=== PATIENT | male | born 1985 | race Caucasian/White ===

== ENCOUNTER 2021-05-23 19:29 | Emergency (ER) | payer MEDICAID, SELFPAY ==
[2021-05-23 19:34] VITALS: BP 144/95; PULSE 91; RESP 20; O2SAT 95; BMI 25.8
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
[2021-05-23 20:08] LABS: Basophils % 0.3 %; Eosinophils # 0.2 10^3/uL (0.0-0.8); Eosinophils % 1.8 %; Hematocrit 43.2 % (42.0-52.0); Hemoglobin 14.3 g/dL (11.7-16.6); Lymphocytes # 2.3 10^3/uL (0.8-4.8); Lymphocytes % 18.2 %; Mean Corpuscular HGB Conc 33.1 g/dL (30.0-36.0); Mean Corpuscular Hemoglobin 32.1 pg (28.0-34.0); Mean Corpuscular Volume 97.1 fL (80-94); Mean Platelet Volume 9.6 fL (7.4-10.4); Monocytes % 7.8 %; Neutrophils % 71.6 %; Nucleated Red Blood Cells % 0 %; Platelet Count 210 10^3/cmm (130-400); Red Blood Count 4.45 10^6/uL (4.1-5.3); Red Cell Distribution Width 13.5 % (12.1-15.1); White Blood Count 12.4 10^3/uL (4.0-10.0)
[2021-05-23] MEDS: iohexol 300 mg/mL 100 mL Btl IV (20:08)
[2021-05-23 20:25] VITALS: RESP 20; O2SAT 99
[2021-05-23] MEDS: sodium chloride 0.9% 1,000 ML 999 ML IV (20:25)
[2021-05-23] MEDS: HYDROmorphone 1 mg/mL INJ 1 mL IVP (20:25)
[2021-05-23] MEDS: ondansetron 2 mg/ML SDV 2 mL 4 MG IVP (20:25)
[2021-05-23 20:27] LABS: Alanine Aminotransferase 37 U/L (0-41); Albumin Level 4.2 g/dL (3.5-5.2); Alcohol Level 47 mg/dL (0-10); Alkaline Phosphatase 80 IU/L (40-130); Anion Gap 15.6 (5-19); Aspartate Amino Transferase 33 U/L (0-40); Blood Urea Nitrogen 19 mg/dL (6-20); Calcium 8.2 mg/dL (8.5-10.5); Carbon Dioxide 24 mmol/L (22-29); Chloride 104 mmol/L (98-107); Creatinine Clr Calc Pharmacy 125.6616; Globulin 2.5 g/dL (1.3-4.6); Glomerular Filtration Rate 109.4 mL/min (90-130); Glucose 90 mg/dL (65-115); Osmolality Calculated 292 mOsm/kg (285-295); Potassium 3.6 mmol/L (3.5-5.1); Sodium 140 mmol/L (136-145); Total Bilirubin 0.2 mg/dL (0.15-1.2); Total Protein 6.7 g/dL (6.6-8.7)
[2021-05-23 21:18] VITALS: BP 135/93; PULSE 102; RESP 18; O2SAT 98
== END 2021-05-23 21:43 | disposition home or self-care (01) ==
PROVIDERS: Emergency Provider Emergency Medicine
DX: S01.01XA Laceration without foreign body of scalp, initial encounter (principal); S22.32XA Fracture of one rib, left side, initial encounter for closed fracture; S32.009A Unspecified fracture of unspecified lumbar vertebra, initial encounter for closed fracture; F17.290 Nicotine dependence, other tobacco product, uncomplicated; X58.XXXA Exposure to other specified factors, initial encounter
CPT/HCPCS: 12001; 70450; 71260; 72125; 72128; 72131; 73080; 74177; 80053; 80307; 85025; 96361; 96374; 96375; 99284; J1170; J2405; J7030; Q9967

== ENCOUNTER → 2021-06-03 14:24 | Outpatient (BNVA) | payer MEDICAID, SELFPAY | PROVIDERS: Referring Provider Emergency Medicine; Visit Provider Orthopaedic Surgery | DX: M54.5 Low back pain (principal) | CPT/HCPCS: 72100 ==

== ENCOUNTER → 2021-07-15 14:54 | Outpatient (BNVA) | payer MEDICAID, SELFPAY | PROVIDERS: PCP Nurse Practitioner Family; Visit Provider Orthopaedic Surgery | DX: M54.5 Low back pain (principal); S32.018A Other fracture of first lumbar vertebra, initial encounter for closed fracture; S32.028A Other fracture of second lumbar vertebra, initial encounter for closed fracture; S32.038A Other fracture of third lumbar vertebra, initial encounter for closed fracture; S32.048A Other fracture of fourth lumbar vertebra, initial encounter for closed fracture; X58.XXXA Exposure to other specified factors, initial encounter | CPT/HCPCS: 72100 ==

== ENCOUNTER 2021-09-18 14:58 | Outpatient (CLI) | payer MEDICAID, SELFPAY ==
--- NOTE | 2021-09-18 15:00 | US_ITS ---
WS: [id number] ULTRASOUND SOFT TISSUE INDICATION: Palpable lump superior to eyebrow TECHNIQUE: Ultrasound soft tissue FINDINGS: Ultrasound soft tissue area of concern superior to eyebrow. Hypoechoic well-circumscribed o void lesion in the shallow subcutaneous soft tissues measuring 7.9 x 3.5 x 6.9 mm. No internal vascul arity. This appears to represent a complex cyst with through-transmission. US/US soft tissue head neck [id number] IMPRESSION: Hypoechoic well-circumscribed ovoid lesion in the area of concern m easuring 7.9 x 3.5 x 6.9 mm. No internal vascularity. This appears to represent a complex cyst.
== END 2021-09-18 14:59 | disposition home or self-care (01) ==
LOC: RAD 15:01
PROVIDERS: PCP Nurse Practitioner Family; Visit Provider Nurse Practitioner Family
DX: M79.89 Other specified soft tissue disorders (principal); W34.010A Accidental discharge of airgun, initial encounter
CPT/HCPCS: 76536

== ENCOUNTER 2022-01-13 10:15 | Inpatient (IN) | payer MEDICAID, SELFPAY ==
[2022-01-13 10:18] VITALS: BP 155/104; PULSE 99; RESP 18; TEMP 36.8; O2SAT 94; BMI 29.7
--- NOTE | 2022-01-13 10:35 | ED.C_ITS ---
Documented by User: YAMILA Franco 01/13/22 13:32 HPI - Psych General: Chief Complaint: Psychiatric Symptoms Stated Complaint: SI, OFF MEDS FOR A WEEK Time Seen by Provider: 01/13/22 10:17 History of Present Illness: Patient is a 36-year-old male comes to the ED with SI. Patient says he had past SI attempt back in 2017 where he took a bunch of gabapentin and drink some alcohol and was hospitalized then. Today patient is having increased depression and thoughts of SI because a girlfriend who is helped him out a lot is leaving him. He left the house and was riding around on his bike and being dangerous and weaving in and out of traffic. He was wanting to get it by a vehicle. Somebody called the police and they came and found him picked him up and brought him here. Denies any current injuries. Patient has a past medical history of alcohol and methamphetamine abuse but denies any recent use. Patient does admit to marijuana use. He currently has a prescription for sertraline, mirtazapine and buspirone, but he has not been taking any of his meds because he says it makes him too emotional. Denies HI, auditory or visual hallucinations. Patient states he wants help and would like to be admitted to psych unit. Associated symptoms: Reports depression and suicidal ideation; Deny auditory hallucinations, visual hallucinations or homicidal ideation Review of Systems Const: Denies: fever(s), chills or fatigue Eyes: Denies: change in vision or eye discomfort ENMT: Denies: throat pain, odynophagia, nasal discharge or nasal congestion Card: Denies: chest pain, palpitations, edema, swelling of feet/ankles, dyspnea on exertion or orthopnea Resp: Denies: dyspnea, productive cough or non-productive cough GI: Denies: abdominal pain, nausea, vomiting, diarrhea, constipation or hematochezia : Denies: flank pain, difficulty urinating, dysuria or hematuria Musc: Denies: neck pain, back pain or extremity swelling Skin/Breast: Denies: rash or new lesions Neuro: Denies: headache(s), numbness in extremities or weakness in extremities Psych: Reports: depression and suicidal ideation; Denies: visual hallucinations, auditory hallucinations or homicidal ideation [facility] ED PFSH: Medical History (Updated 01/13/22 @ 13:31 by YAMILA Franco) Generalized anxiety disorder Major depression Schizophrenia Surgical History No pertinent past surgical history Social History Second hand smoke exposure: Yes Alcohol intake: current Alcohol intake frequency: few times a month Alcohol type: beer Caregiver/support person: Yes Household members: none Marital status: Single service: No Current occupational status: employed History of recent travel: No Current gender identity: Male Special maria l needs: No Agree to transfusion: Yes Physical Exam Const: COMMON NORMALS: patient oriented x3 GENERAL APPEARANCE: cooperative and comfortable HENMT: COMMON NORMALS: normocephalic HEAD & SCALP: normocephalic MOUTH: Normal oral and palatal mucosa present THROAT: posterior oropharynx normal and uvula midline Neck/C-Spine: COMMON NORMALS: supple GENERAL: Yes normal visual inspection Resp: COMMON NORMALS: normal respiratory effort, No retractions, No use of accessory muscles and clear to auscultation bilaterally AUSCULTATION: clear to auscultation bilaterally Cardio: COMMON NORMALS: regular rate, regular rhythm, S1 normal heart sound present, S2 normal heart sound present, No gallops present (Cardio), No clicks present (Cardio), No murmurs present (Cardio) and Peripheral pulses 2+ throughout RATE: regular rate RHYTHM: regular rhythm HEART SOUNDS: S1 normal heart sound present and S2 normal heart sound present PERIPHERAL PULSES: Peripheral pulses 2+ throughout GI: COMMON NORMALS: Normal to inspection, nondistended, normoactive bowel sounds present, Soft to palpation, non-tender and no masses PALPATION: Yes Soft to palpation : COMMON NORMALS: Yes no CVA tenderness BLADDER/KIDNEY EXAM: Yes no CVA tenderness Back/Pelvis: COMMON NORMALS: no CVA tenderness Extremity: COMMON NORMALS: normal to inspection Neuro: COMMON NORMALS: patient oriented x3 and moves all extremities Psych: COMMON NORMALS: mental status grossly normal, cooperative, speech normal, activity/motor behavior normal, denies hallucinations and denies homicidal ideation ATTITUDE: Yes calm ACTIVITY/MOTOR BEHAVIOR: Yes appropriate eye contact SPEECH: Yes normal speech MOOD & AFFECT: Yes sad and Yes tearful THOUGHT CONTENT: Yes Suicidality present, No Homicidality present and No Hallucination(s) present Skin: GENERAL SKIN EXAM: dry skin Course Consultations: Consultation #1: I contacted Dr. Ovalle and told him about patient case. He agreed to have patient admitted into the NPU. Time: 13:28 Vital Signs: Vital signs: Vital Signs Temperature 97.7 F 01/15/22 06:00 Pulse Rate 110 H 01/15/22 06:00 Respiratory Rate 17 01/15/22 06:00 Blood Pressure 133/85 01/15/22 06:00 Pulse Oximetry 94 01/15/22 06:[address] [facility] - Psych Medical Decision Making Patient is a 36-year-old male comes to the ED with SI. past SI attempt in 2017 by overdose. He was brought in by police because someone called and said he was riding his bike recklessly around traffic. . Denies any overdose attempt. Denies any recent drug or alcohol use. Vitals stable. He is calm and cooperative here in the ED. rest of exam is benign. Prescreening psych labs performed and patient's urine drug screen showed marijuana nothing else. The rest of his labs were unremarkable. Contacted Dr. Ovalle and told about patient case and he agreed to have patient admitted to NPU. Dr. Coates was notified and will be placing the admitting orders. Lab Data I reviewed the patient's lab results. : 01/13/22 Unknown 01/13/22 Unknown Laboratory Results WBC 7.1 10^3/uL (4.0-10.0) 01/13/22 Unknown RBC 4.71 10^6/uL (4.1-5.3) 01/13/22 Unknown Hgb 15.4 g/dL (11.7-16.6) 01/13/22 Unknown Hct 45.7 % (42.0-52.0) 01/13/22 Unknown MCV 97.0 fl (80-94) H 01/13/22 Unknown MCH 32.7 pg (28.0-34.0) 01/13/22 Unknown MCHC 33.7 g/dL (30.0-36.0) 01/13/22 Unknown RDW 13.1 % (12.1-15.1) 01/13/22 Unknown Plt Count 272 10^3/cmm (130-400) 01/13/22 Unknown MPV 9.4 fL (7.4-10.4) 01/13/22 Unknown Neut % (Auto) 64.1 % 01/13/22 Unknown Lymph % (Auto) 27.1 % 01/13/22 Unknown [place] % (Auto) 7.3 % 01/13/22 Unknown Eos % (Auto) 1.0 % 01/13/22 Unknown Baso % (Auto) 0.4 % 01/13/22 Unknown Neut # (Auto) 4.57 10^3/uL (1.8-7.7) 01/13/22 Unknown Lymph # (Auto) 1.9 10^3/uL (0.8-4.8) 01/13/22 Unknown [place] # (Auto) 0.5 10^3/uL (0.2-0.9) 01/13/22 Unknown Eos # (Auto) 0.1 10^3/uL (0.0-0.8) 01/13/22 Unknown Baso # (Auto) 0.0 10^3/uL (0.0-0.1) 01/13/22 Unknown Nucleated RBC % (auto) 0 % 01/13/22 Unknown Nucleated RBCs # 0.0 /100WBC 01/13/22 Unknown Sodium 137 mmol/L (136-145) 01/13/22 Unknown Potassium 4.2 mmol/L (3.5-5.1) 01/13/22 Unknown Chloride 102 mmol/L (98-107) 01/13/22 Unknown Carbon Dioxide 24 mmol/L (22-29) 01/13/22 Unknown Anion Gap 15.2 (5-19) 01/13/22 Unknown BUN 9 mg/dL (6-20) 01/13/22 Unknown Creatinine 0.6 mg/dL (0.7-1.2) L 01/13/22 Unknown GFR Calculation 152.4 mL/min (90-130) H 01/13/22 Unknown Glucose 114 mg/dL (65-115) 01/13/22 Unknown Calculated Osmolality 284 mOsm/kg (285-295) L 01/13/22 Unknown Calcium 9.1 mg/dL (8.5-10.5) 01/13/22 Unknown Total Bilirubin 0.3 mg/dL (0.15-1.2) 01/13/22 Unknown AST 27 U/L (0-40) 01/13/22 Unknown ALT 33 U/L (0-41) 01/13/22 Unknown Alkaline Phosphatase 88 IU/L (40-130) 01/13/22 Unknown Total Protein 7.2 g/dL (6.6-8.7) 01/13/22 Unknown Albumin 5.1 g/dL (3.5-5.2) 01/13/22 Unknown Globulin 2.1 g/dL (1.3-4.6) 01/13/22 Unknown Urine Color Dark yellow (Yellow) 01/13/22 Unknown Urine Appearance Clear (CLEAR) 01/13/22 Unknown Urine pH 8 (5-7) H 01/13/22 Unknown Ur Specific [place] 1.015 (1.005-1.030) 01/13/22 Unknown Urine Protein Neg (Negative) 01/13/22 Unknown Urine Glucose (UA) Norm (Normal) 01/13/22 Unknown Urine Ketones Negative (Negative) 01/13/22 Unknown Urine Blood Neg (Negative) 01/13/22 Unknown Urine Nitrate Negative (Negative) 01/13/22 Unknown Urine Bilirubin Neg (Negative) 01/13/22 Unknown Prot Sulfosalicylic Acd Negative (Negative) 01/13/22 Unknown Urine Urobilinogen Neg mg/dL (Negative) 01/13/22 Unknown Ur Leukocyte Esterase Negative (Negative) 01/13/22 Unknown Salicylates < 0.3 mg/dL (3-10) L 01/13/22 Unknown Urine Opiates Screen Negative ng/mL (Negative) 01/13/22 Unknown Acetaminophen < 5.0 ug/mL (10-30) L 01/13/22 Unknown Ur Barbiturates Screen Negative ng/mL (Negative) 01/13/22 Unknown Ur Phencyclidine Scrn Negative ng/mL (Negative) 01/13/22 Unknown Ur Amphetamines Screen Negative ng/mL (Negative) 01/13/22 Unknown U Benzodiazepines Scrn Negative ng/mL (Negative) 01/13/22 Unknown Urine Cocaine Screen Negative ng/mL (Negative) 01/13/22 Unknown U Marijuana (THC) Screen Positive ng/mL (Negative) H 01/13/22 Unknown Ethyl Alcohol < 10 mg/dL (0-10) 01/13/22 Unknown Discharge Plan Discharge Patient Disposition: Admitted As Inpatient Admit Provider: Jorje Ovalle Clinical Impression: Suicidal ideation Condition: Stable Sign Out Sign Out Data: Patient Sign Out occurred on 01/13/22 at 13:24. Patient's care was discussed, and care was transferred from to Efraín Coates DO. Coding Level of Care Code ED Data Center Consultant for Chg Fwd Exam Comprehensive Documented by User: Efraín Coates DO 01/15/22 09:22 HPI - Psych General: Chief Complaint: Psychiatric Symptoms Stated Complaint: SI, OFF MEDS FOR A WEEK Time Seen by Provider: 01/13/22 10:17 [facility] ED PFSH: Medical History (Updated 01/13/22 @ 13:31 by YAMILA Franco) Generalized anxiety disorder Major depression Schizophrenia Surgical History No pertinent past surgical history Social History Second hand smoke exposure: Yes Alcohol intake: current Alcohol intake frequency: few times a month Alcohol type: beer Caregiver/support person: Yes Household members: none Marital status: Single service: No Current occupational status: employed History of recent travel: No Current gender identity: Male Special maria l needs: No Agree to transfusion: Yes Course Vital Signs: Vital signs: Vital Signs Temperature 97.7 F 01/15/22 06:00 Pulse Rate 110 H 01/15/22 06:00 Respiratory Rate 17 01/15/22 06:00 Blood Pressure 133/85 01/15/22 06:00 Pulse Oximetry 94 01/15/22 06:00 MDM - Psych Medical Decision Making Patient is a 36-year-old male comes to the ED with SI. past SI attempt in 2017 by overdose. He was brought in by police because someone called and said he was riding his bike recklessly around traffic. . Denies any overdose attempt. Denies any recent drug or alcohol use. Vitals stable. He is calm and cooperative here in the ED. rest of exam is benign. Prescreening psych labs performed and patient's urine drug screen showed marijuana nothing else. The rest of his labs were unremarkable. Contacted Dr. Ovalle and told about patient case and he agreed to have patient admitted to NPU. Dr. Coates was notified and will be placing the admitting orders. Chart reviewed and patient discussed with midlevel. Agree with assessment and plan. Patient seen and discussed his history with him. He is acutely suicidal. Orders written for admission. Medical Records I reviewed the patient's medical records. Lab Data I reviewed the patient's lab results. : 01/13/22 Unknown 01/13/22 Unknown Laboratory Results WBC 7.1 10^3/uL (4.0-10.0) 01/13/22 Unknown RBC 4.71 10^6/uL (4.1-5.3) 01/13/22 Unknown Hgb 15.4 g/dL (11.7-16.6) 01/13/22 Unknown Hct 45.7 % (42.0-52.0) 01/13/22 Unknown MCV 97.0 fl (80-94) H 01/13/22 Unknown MCH 32.7 pg (28.0-34.0) 01/13/22 Unknown MCHC 33.7 g/dL (30.0-36.0) 01/13/22 Unknown RDW 13.1 % (12.1-15.1) 01/13/22 Unknown Plt Count 272 10^3/cmm (130-400) 01/13/22 Unknown MPV 9.4 fL (7.4-10.4) 01/13/22 Unknown Neut % (Auto) 64.1 % 01/13/22 Unknown Lymph % (Auto) 27.1 % 01/13/22 Unknown [place] % (Auto) 7.3 % 01/13/22 Unknown Eos % (Auto) 1.0 % 01/13/22 Unknown Baso % (Auto) 0.4 % 01/13/22 Unknown Neut # (Auto) 4.57 10^3/uL (1.8-7.7) 01/13/22 Unknown Lymph # (Auto) 1.9 10^3/uL (0.8-4.8) 01/13/22 Unknown [place] # (Auto) 0.5 10^3/uL (0.2-0.9) 01/13/22 Unknown Eos # (Auto) 0.1 10^3/uL (0.0-0.8) 01/13/22 Unknown Baso # (Auto) 0.0 10^3/uL (0.0-0.1) 01/13/22 Unknown Nucleated RBC % (auto) 0 % 01/13/22 Unknown Nucleated RBCs # 0.0 /100WBC 01/13/22 Unknown Sodium 137 mmol/L (136-145) 01/13/22 Unknown Potassium 4.2 mmol/L (3.5-5.1) 01/13/22 Unknown Chloride 102 mmol/L (98-107) 01/13/22 Unknown Carbon Dioxide 24 mmol/L (22-29) 01/13/22 Unknown Anion Gap 15.2 (5-19) 01/13/22 Unknown BUN 9 mg/dL (6-20) 01/13/22 Unknown Creatinine 0.6 mg/dL (0.7-1.2) L 01/13/22 Unknown GFR Calculation 152.4 mL/min (90-130) H 01/13/22 Unknown Glucose 114 mg/dL (65-115) 01/13/22 Unknown Calculated Osmolality 284 mOsm/kg (285-295) L 01/13/22 Unknown Calcium 9.1 mg/dL (8.5-10.5) 01/13/22 Unknown Total Bilirubin 0.3 mg/dL (0.15-1.2) 01/13/22 Unknown AST 27 U/L (0-40) 01/13/22 Unknown ALT 33 U/L (0-41) 01/13/22 Unknown Alkaline Phosphatase 88 IU/L (40-130) 01/13/22 Unknown Total Protein 7.2 g/dL (6.6-8.7) 01/13/22 Unknown Albumin 5.1 g/dL (3.5-5.2) 01/13/22 Unknown Globulin 2.1 g/dL (1.3-4.6) 01/13/22 Unknown Urine Color Dark yellow (Yellow) 01/13/22 Unknown Urine Appearance Clear (CLEAR) 01/13/22 Unknown Urine pH 8 (5-7) H 01/13/22 Unknown Ur Specific [place] 1.015 (1.005-1.030) 01/13/22 Unknown Urine Protein Neg (Negative) 01/13/22 Unknown Urine Glucose (UA) Norm (Normal) 01/13/22 Unknown Urine Ketones Negative (Negative) 01/13/22 Unknown Urine Blood Neg (Negative) 01/13/22 Unknown Urine Nitrate Negative (Negative) 01/13/22 Unknown Urine Bilirubin Neg (Negative) 01/13/22 Unknown Prot Sulfosalicylic Acd Negative (Negative) 01/13/22 Unknown Urine Urobilinogen Neg mg/dL (Negative) 01/13/22 Unknown Ur Leukocyte Esterase Negative (Negative) 01/13/22 Unknown Salicylates < 0.3 mg/dL (3-10) L 01/13/22 Unknown Urine Opiates Screen Negative ng/mL (Negative) 01/13/22 Unknown Acetaminophen < 5.0 ug/mL (10-30) L 01/13/22 Unknown Ur Barbiturates Screen Negative ng/mL (Negative) 01/13/22 Unknown Ur Phencyclidine Scrn Negative ng/mL (Negative) 01/13/22 Unknown Ur Amphetamines Screen Negative ng/mL (Negative) 01/13/22 Unknown U Benzodiazepines Scrn Negative ng/mL (Negative) 01/13/22 Unknown Urine Cocaine Screen Negative ng/mL (Negative) 01/13/22 Unknown U Marijuana (THC) Screen Positive ng/mL (Negative) H 01/13/22 Unknown Ethyl Alcohol < 10 mg/dL (0-10) 01/13/22 Unknown Discharge Plan Discharge Patient Disposition: Admitted As Inpatient Admit Provider: Jorje Ovalle Clinical Impression: Suicidal ideation Condition: Stable Sign Out Sign Out Data: Patient Sign Out occurred on 01/13/22 at 13:24. Patient's care was discussed, and care was transferred from to Efraín Coates DO. Coding Level of Care Code ED Data Center Consultant for Chg Fwd Exam Comprehensive
[2022-01-13 11:08] LABS: Basophils % 0.4 %; Eosinophils # 0.1 10^3/uL (0.0-0.8); Hematocrit 45.7 % (42.0-52.0); Hemoglobin 15.4 g/dL (11.7-16.6); Lymphocytes # 1.9 10^3/uL (0.8-4.8); Lymphocytes % 27.1 %; Mean Corpuscular HGB Conc 33.7 g/dL (30.0-36.0); Mean Corpuscular Hemoglobin 32.7 pg (28.0-34.0); Mean Platelet Volume 9.4 fL (7.4-10.4); Monocytes # 0.5 10^3/uL (0.2-0.9); Monocytes % 7.3 %; Neutrophils # 4.57 10^3/uL (1.8-7.7); Neutrophils % 64.1 %; Nucleated Red Blood Cells % 0 %; Platelet Count 272 10^3/cmm (130-400); Red Blood Count 4.71 10^6/uL (4.1-5.3); Red Cell Distribution Width 13.1 % (12.1-15.1); White Blood Count 7.1 10^3/uL (4.0-10.0)
[2022-01-13 11:30] LABS: Alanine Aminotransferase 33 U/L (0-41); Albumin Level 5.1 g/dL (3.5-5.2); Alkaline Phosphatase 88 IU/L (40-130); Anion Gap 15.2 (5-19); Aspartate Amino Transferase 27 U/L (0-40); Blood Urea Nitrogen 9 mg/dL (6-20); Calcium 9.1 mg/dL (8.5-10.5); Carbon Dioxide 24 mmol/L (22-29); Chloride 102 mmol/L (98-107); Globulin 2.1 g/dL (1.3-4.6); Glomerular Filtration Rate 152.4 mL/min (90-130); Glucose 114 mg/dL (65-115); Osmolality Calculated 284 mOsm/kg (285-295); Potassium 4.2 mmol/L (3.5-5.1); Sodium 137 mmol/L (136-145); Total Bilirubin 0.3 mg/dL (0.15-1.2); Total Protein 7.2 g/dL (6.6-8.7)
[2022-01-13 11:32] LABS: Acetaminophen < 5.0 ug/mL (10-30); Alcohol Level < 10 mg/dL (0-10); Salicylate < 0.3 mg/dL (3-10)
[2022-01-13 12:16] LABS: Add Urine Microscopic? NO; Charge for UA Resulting for Rev
[2022-01-13 12:28] LABS: Amphetamines Screen Urine Negative (Negative); Barbiturates Screen Urine Negative (Negative); Benzodiazepines Screen Urine Negative (Negative); Cocaine Screen Urine Negative (Negative); Opiate Screen Urine Negative (Negative); PCP Screen Urine Negative (Negative); THC Screen Urine Positive (Negative)
[2022-01-13 12:34] LABS: Bilirubin Urine Neg (Negative); Blood Urine Neg (Negative); Glucose Urine UA Norm (Normal); Ketones Urine Negative (Negative); Leukocyte Esterase Urine Negative (Negative); Nitrate Urine Negative (Negative); Protein Urine Neg (Negative); Specific Gravity, Urine 1.015 (1.005-1.030); Sulfosalicylic Acid Urine Negative (Negative); Urine Appearance Clear (CLEAR); Urine Color Dark Yellow (Yellow); Urobilinogen Urine Neg (Negative); pH Urine 8 (5-7)
[2022-01-13] MEDS: BuSPIRONE 10 mg Tablet 30 MG PO ×2 (13:30→20:33)
[2022-01-13 14:03] VITALS: BP 146/81; PULSE 66; RESP 18; TEMP 36.6
[2022-01-13 14:10] VITALS: BP 146/55; PULSE 72; RESP 18; O2SAT 99
[2022-01-13 14:28] VITALS: BP 146/100; PULSE 88; RESP 17; TEMP 36.7; O2SAT 97
[2022-01-13] MEDS: mirtazapine 30 mg Tablet PO (20:31)
[2022-01-13] MEDS: mirtazapine 15 mg Tablet PO (20:31)
[2022-01-13] MEDS: acetaminophen 325 mg Tablet 650 MG PO (20:33)
[2022-01-13 21:14] VITALS: BP 113/70; PULSE 83; RESP 20; TEMP 36.7; O2SAT 97
[2022-01-14 06:00] VITALS: BP 125/85; PULSE 100; RESP 16; TEMP 37.1; O2SAT 95
[2022-01-14] MEDS: BuSPIRONE 10 mg Tablet 30 MG PO ×2 (09:01→20:25)
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
[2022-01-14] MEDS: acetaminophen 325 mg Tablet 650 MG PO ×2 (10:12→20:21)
[2022-01-14] MEDS: nicotine 21 mg Patch 1 PATCH TRANSDERMA (13:27)
[2022-01-14 14:00] VITALS: BP 145/87; PULSE 84; RESP 18; TEMP 36.3; O2SAT 97
[2022-01-14] MEDS: escitalopram 10 mg Tablet PO (17:38)
[2022-01-14] MEDS: trazodone 50 mg Tablet PO (20:21)
[2022-01-14] MEDS: mirtazapine 15 mg Tablet PO (20:25)
[2022-01-14] MEDS: mirtazapine 30 mg Tablet PO (20:25)
--- NOTE | 2022-01-14 21:54 | PC.NURSE ---
Patient requested medication to help him sleep and something for his back pain. Tylenol was given for his back pain and Trazadone was given to help him sleep. Both were given at 2020
[2022-01-14 22:00] VITALS: BP 126/81; PULSE 87; RESP 18; TEMP 36.8; O2SAT 97
[2022-01-15 06:00] VITALS: BP 133/85; PULSE 110; RESP 17; TEMP 36.5; O2SAT 94
[2022-01-15] MEDS: BuSPIRONE 10 mg Tablet 30 MG PO ×2 (08:24→14:30)
[2022-01-15] MEDS: nicotine 21 mg Patch 1 PATCH TRANSDERMA (08:24)
[2022-01-15] MEDS: OLANZapine 5 mg ODT PO (11:16)
[2022-01-15] MEDS: hyDROXYzine 25 mg Capsule 50 MG PO (13:14)
[2022-01-15] MEDS: haloperidol 5 mg Tablet PO (13:25)
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
[2022-01-15 15:57] VITALS: BP 133/85; PULSE 110; RESP 17; TEMP 36.5; O2SAT 94
== END 2022-01-15 17:04 | disposition home or self-care (01) | DRG 885 ==
LOC: ER 13:31 → NP 14:09
PROVIDERS: Physician Assistant; Admitting Provider Psychiatry & Neurology Psychiatry; Emergency Provider Family Medicine; PCP Nurse Practitioner Family; Visit Provider Psychiatry & Neurology Psychiatry
DX: F33.3 Major depressive disorder, recurrent, severe with psychotic symptoms (principal); R45.851 Suicidal ideations; Z91.14 Patient's other noncompliance with medication regimen; F41.1 Generalized anxiety disorder; Z91.51 Personal history of suicidal behavior; Z81.8 Family history of other mental and behavioral disorders
CPT/HCPCS: 80053; 80306; 80307; 81003; 85025; 97150; 97165; 99285